=== PATIENT | female | born 1985 | race Two or more races ===

== ENCOUNTER 2019-03-03 11:19 | Inpatient (IN) | payer OTHER ==
[2019-03-03 11:38] VITALS: BMI 22.6
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
[2019-03-03] MEDS ORDERED: MENTHOL/PHENOL 1 EACH UD MM PRN (13:32)
[2019-03-03] MEDS ORDERED: hydrOXYzine PAMOATE 25 MG CAPSULE (FP) PO PRN (13:32)
[2019-03-03] MEDS ORDERED: ONDANSETRON *ODT* 4 MG TABLET SL PRN (13:32)
[2019-03-03] MEDS ORDERED: BISMUTH SUBSALICYLATE 262 MG/15 ML BTL PO PRN (13:32)
[2019-03-03] MEDS ORDERED: ACETAMINOPHEN 325 MG TABLET (FP) PO PRN ×2 (13:32)
[2019-03-03] MEDS ORDERED: LORazepam 1 MG TABLET PO PRN (13:32)
[2019-03-03] MEDS ORDERED: MAG HYDROX/AL HYDROX/SIMETH 30 ML UNIT-DOSE CUP PO PRN (13:32)
[2019-03-03] MEDS ORDERED: MELATONIN 5 MG TABLETS PO PRN (13:32)
[2019-03-03] MEDS ORDERED: MAGNESIUM CITRATE 300 ML BOTTLE PO PRN (13:32)
[2019-03-03] MEDS ORDERED: METHOCARBAMOL 500 MG TABLET PO PRN (13:32)
[2019-03-03] MEDS ORDERED: MAGNESIUM HYDROX 2400MG/30ML ORAL SUSPENSION 30 ML CUP PO PRN (13:32)
[2019-03-03] MEDS ORDERED: ALBUTEROL SO4 HFA INHALER IH PRN (13:34)
[2019-03-03] MEDS: LORazepam 2 MG TABLET PO SCH ×2 (16:11→22:32)
[2019-03-03] MEDS: IBUPROFEN 400 MG TABLET (FP) PO PRN ×2 (16:11→22:34)
[2019-03-03] MEDS: BENZOCAINE 20 % GEL TUBE MM PRN (16:11)
[2019-03-03] MEDS: NICOTINE POLACRILEX 2 MG GUM BUC PRN (16:12)
[2019-03-03 17:54] LABS: HEMATOCRIT 39.5 % (32.4-45.2); HEMOGLOBIN 13.1 GM/dL (10.7-15.3); MCH 29.2 pg (25.7-33.7); MCHC 33.2 g/dl (32.0-36.0); MEAN CELL VOLUME 87.8 fl (80-96); MEAN PLT VOLUME 8.2 fl (7.5-11.1); PLATELET COUNT 362 K/MM3 (134-434); RDW 13.9 % (11.6-15.6); WHITE BLOOD COUNT 6.5 K/mm3 (4.0-10.0)
[2019-03-03 18:05] LABS: ALBUMIN 3.8 g/dl (3.4-5.0); BILIRUBIN,TOTAL 0.2 mg/dL (0.2-1); BLOOD UREA NITROGEN 16.9 mg/dL (7-18); CALCIUM 9.4 mg/dL (8.5-10.1); CREATININE 0.6 mg/dL (0.55-1.3); POTASSIUM 4.1 mmol/L (3.5-5.1); TOT PROT 8.2 g/dl (6.4-8.2)
[2019-03-03] MEDS ORDERED: THIAMINE HCL 100 MG TABLET (FP) PO SCH (22:00)
[2019-03-03] MEDS ORDERED: LIDOCAINE PATCH REMOVAL MC SCH (22:00)
[2019-03-04] MEDS: BENZOCAINE 20 % GEL TUBE MM PRN (05:49)
[2019-03-04] MEDS: LORazepam 2 MG TABLET PO SCH ×2 (05:49→10:22)
[2019-03-04] MEDS: IBUPROFEN 400 MG TABLET (FP) PO PRN (05:50)
[2019-03-04] MEDS: NICOTINE POLACRILEX 2 MG GUM BUC PRN (05:52)
[2019-03-04] MEDS ORDERED: NICOTINE 14 MG/24 HOURS TOPICAL PATCH TD SCH (10:00)
[2019-03-04] MEDS ORDERED: PANTOPRAZOLE 20 MG TABLET PO SCH (10:00)
[2019-03-04] MEDS ORDERED: PRENATAL VITAMINS W/ FOLIC ACID TABLET (FP) PO SCH (10:00)
[2019-03-04] MEDS ORDERED: LIDOCAINE 5% TOPICAL PATCH TP SCH (10:00)
[2019-03-04] MEDS ORDERED: FLU VACCINE QUAD 60 MCG/0.5 ML (MDV 19-20) IM ONE (12:00)
--- NOTE | 2019-03-04 12:27 | PN ---
S CIWA - CIWA Score Nausea/Vomitin-No Nausea/No Vomiting Muscle Tremors: None Anxiety: 3 Agitation: 0-Normal Activity Paroxysmal Sweats: 3 Orientation: 0-Oriented Tacttile Disturbances: 0-None Auditory Disturbances: 0-None Visual Disturbances: 0-None Headache: 2-Mild CIWA-Ar Total Score: 8 S Progress Note (SOAP) Subjective: c/o sweats, headache, anxiety, and interrupted sleep. Objective: 03/04/19 12:27 Vital Signs 03/04/19 03/04/19 06:43 09:27 Temperature 97.4 F L 97.9 F Pulse Rate 78 95 H Respiratory 20 16 Rate Blood Pressure 125/51 L 119/67 Laboratory Last Values WBC 6.5 K/mm3 (4.0-10.0) 03/03/19 13:45 RBC 4.50 M/mm3 (3.60-5.2) 03/03/19 13:45 Hgb 13.1 GM/dL (10.7-15.3) 03/03/19 13:45 Hct 39.5 % (32.4-45.2) 03/03/19 13:45 MCV 87.8 fl (80-96) 03/03/19 13:45 MCH 29.2 pg (25.7-33.7) 03/03/19 13:45 MCHC 33.2 g/dl (32.0-36.0) 03/03/19 13:45 RDW 13.9 % (11.6-15.6) 03/03/19 13:45 Plt Count 362 K/MM3 (134-434) 03/03/19 13:45 MPV 8.2 fl (7.5-11.1) 03/03/19 13:45 Sodium 138 mmol/L (136-145) 03/03/19 13:45 Potassium 4.1 mmol/L (3.5-5.1) 03/03/19 13:45 Chloride 106 mmol/L (98-107) 03/03/19 13:45 Carbon Dioxide 27 mmol/L (21-32) 03/03/19 13:45 Anion Gap 6 MMOL/L (8-16) L 03/03/19 13:45 BUN 16.9 mg/dL (7-18) 03/03/19 13:45 Creatinine 0.6 mg/dL (0.55-1.3) 03/03/19 13:45 Est GFR (CKD-EPI)AfAm 139.78 03/03/19 13:45 Est GFR (CKD-EPI)NonAf 120.61 03/03/19 13:45 Random Glucose 95 mg/dL (74-106) 03/03/19 13:45 Calcium 9.4 mg/dL (8.5-10.1) 03/03/19 13:45 Total Bilirubin 0.2 mg/dL (0.2-1) 03/03/19 13:45 AST 69 U/L (15-37) H 03/03/19 13:45 ALT 179 U/L (13-61) H 03/03/19 13:45 Alkaline Phosphatase 151 U/L (45-117) H 03/03/19 13:45 Total Protein 8.2 g/dl (6.4-8.2) 03/03/19 13:45 Albumin 3.8 g/dl (3.4-5.0) 03/03/19 13:45 Labs noted. Assessment: 03/04/19 12:27 AOX3, in no respiratory distress. Full ROM, ambulating in the unit. Withdrawal symptoms. Plan: continue detox.
[2019-03-04 13:42] VITALS: BP 116/73; PULSE 109; TEMP 97.7
--- NOTE | 2019-03-04 14:36 | EKG ---
Test Reason : Blood Pressure : / mmHG Vent. Rate : 072 BPM Atrial Rate : 072 BPM P-R Int : 146 ms QRS Dur : 084 ms QT Int : 396 ms P-R-T Axes : 016 037 039 degrees QTc Int : 433 ms NORMAL SINUS RHYTHM NORMAL ECG NO PREVIOUS ECGS AVAILABLE Confirmed by IVETH HOOD MD ([id number]) on 03/04/2019 2:36:09 PM Referred By: Confirmed By:IVETH HOOD MD
--- NOTE | 2019-03-04 14:52 | CONSULT ---
[facility] Psychiatric Consult - Data Date of interview: 03/04/19 Admission source: [facility] Identifying data: Patient is approached for psychiatric interview. Ms Patterson declines. " I am not interested. I don't need to see psychiatrists." Nursing staff made aware.
--- NOTE | 2019-03-04 15:05 | DS ---
[facility] Detox Discharge Summary Admission Date: 03/03/19 Discharge Date: 03/04/19 (Left AMA) - History Present History: Alcohol Dependence, Opioid Dependence, Sedative Dependence Additional Comments: Pt left AMA. Pt did not completed the detox protocol. Pt states, "i just want to leave" An attempt to let her stay and complete the detox protocol failed. Pt is encouraged to follow-up with an outpatient CD program and also to follow-up with her pmd. Pt was adamant about the information given. Pt is alert and oriented x3 and in no acute respiratory distress. Pertinent Past History: h/o alcohol, heroin, and benzo use disorder. - Physical Exam Results Vital Signs: Vital Signs Temperature 97.7 F 03/04/19 13:42 Pulse Rate 109 H 03/04/19 13:42 Respiratory Rate 18 03/04/19 13:42 Blood Pressure 116/73 03/04/19 13:42 O2 Sat by Pulse Oximetry (%) Vital Signs 03/04/19 03/04/19 09:27 13:42 Temperature 97.9 F 97.7 F Pulse Rate 95 H 109 H Respiratory 16 18 Rate Blood Pressure 119/67 116/73 Laboratory Last Values WBC 6.5 K/mm3 (4.0-10.0) 03/03/19 13:45 RBC 4.50 M/mm3 (3.60-5.2) 03/03/19 13:45 Hgb 13.1 GM/dL (10.7-15.3) 03/03/19 13:45 Hct 39.5 % (32.4-45.2) 03/03/19 13:45 MCV 87.8 fl (80-96) 03/03/19 13:45 MCH 29.2 pg (25.7-33.7) 03/03/19 13:45 MCHC 33.2 g/dl (32.0-36.0) 03/03/19 13:45 RDW 13.9 % (11.6-15.6) 03/03/19 13:45 Plt Count 362 K/MM3 (134-434) 03/03/19 13:45 MPV 8.2 fl (7.5-11.1) 03/03/19 13:45 Sodium 138 mmol/L (136-145) 03/03/19 13:45 Potassium 4.1 mmol/L (3.5-5.1) 03/03/19 13:45 Chloride 106 mmol/L (98-107) 03/03/19 13:45 Carbon Dioxide 27 mmol/L (21-32) 03/03/19 13:45 Anion Gap 6 MMOL/L (8-16) L 03/03/19 13:45 BUN 16.9 mg/dL (7-18) 03/03/19 13:45 Creatinine 0.6 mg/dL (0.55-1.3) 03/03/19 13:45 Est GFR (CKD-EPI)AfAm 139.78 03/03/19 13:45 Est GFR (CKD-EPI)NonAf 120.61 03/03/19 13:45 Random Glucose 95 mg/dL (74-106) 03/03/19 13:45 Calcium 9.4 mg/dL (8.5-10.1) 03/03/19 13:45 Total Bilirubin 0.2 mg/dL (0.2-1) 03/03/19 13:45 AST 69 U/L (15-37) H 03/03/19 13:45 ALT 179 U/L (13-61) H 03/03/19 13:45 Alkaline Phosphatase 151 U/L (45-117) H 03/03/19 13:45 Total Protein 8.2 g/dl (6.4-8.2) 03/03/19 13:45 Albumin 3.8 g/dl (3.4-5.0) 03/03/19 13:45 HIV 1&2 Antibody Screen Negative 03/03/19 14:30 HIV P24 Antigen Negative 03/03/19 14:30 Labs noted. Pertinent Admission Physical Exam Findings: withdrawal symptoms. - Treatment Hospital Course: Detox Protocol Followed - Medication Discharge Medications: Ambulatory Orders Albuterol Sulfate Inhaler - [Ventolin Hfa Inhaler -] 1 - 2 inh PO QID PRN - Diagnosis (1) Alcohol dependence with withdrawal, uncomplicated Current Visit: Yes Status: Acute (2) Sedative, hypnotic or anxiolytic dependence with withdrawal, uncomplicated Current Visit: Yes Status: Acute (3) Chronic hepatitis C virus infection Current Visit: Yes Status: Chronic Qualifiers: Hepatic coma status: without hepatic coma Qualified Code(s): B18.2 - Chronic viral hepatitis C (4) GERD without esophagitis Current Visit: Yes Status: Chronic (5) Mild asthma without complication Current Visit: Yes Status: Chronic - AMA Did Patient Leave Against Medical Advice: Yes
[2019-03-05] MEDS ORDERED: LORazepam 1 MG TABLET PO SCH (05:00)
[2019-03-06] MEDS ORDERED: LORazepam 0.5 MG TABLET PO PRN
[2019-03-06] MEDS ORDERED: LORazepam 0.5 MG TABLET PO SCH (05:00)
[2019-03-06 11:36] LABS: TREPONEMA ANTIBODY REACTIVE (NONREACTIVE)
--- NOTE | 2019-03-06 15:55 | PN ---
[facility] Progress Note Note: 03/06/19 received rpr report from lab 1:32 and MHA reactive the lab quality measurement specialist states that the infectious disease department will be notified and proper procedure will be followed 33 years old female left the detox facility on 03/04/19 insurance underwriter attempted to contact with the patient without success syphilis will be in the problem list
[2019-03-07] MEDS ORDERED: LORazepam 0.5 MG TABLET PO ONE (05:00)
== END 2019-03-04 16:14 | disposition left against medical advice (07) | DRG 894 ==
LOC: YASAS 11:19 → Y3N 14:14
PROVIDERS: ADMIT Allergy & Immunology; ATTEND Allergy & Immunology
PROC: HZ2ZZZZ Detoxification Services for Substance Abuse Treatment (ICD-10-PCS; principal; 2019-03-03)
DX: F10.230 Alcohol dependence with withdrawal, uncomplicated (principal); F13.230 Sedative, hypnotic or anxiolytic dependence with withdrawal, uncomplicated; F17.210 Nicotine dependence, cigarettes, uncomplicated; F41.9 Anxiety disorder, unspecified; B18.2 Chronic viral hepatitis C; K21.9 Gastro-esophageal reflux disease without esophagitis; J45.909 Unspecified asthma, uncomplicated; M54.5 Low back pain; G89.29 Other chronic pain; Z86.69 Personal history of other diseases of the nervous system and sense organs; Z87.42 Personal history of other diseases of the female genital tract; Z88.8 Allergy status to other drugs, medicaments and biological substances; Z91.018 Allergy to other foods
CPT/HCPCS: 36415; 80053; 81025; 85027; 86593; 86780; 87389; 93005; 93010; Q0162

== ENCOUNTER 2019-03-09 11:56 | Inpatient (IN) | payer OTHER ==
[2019-03-09 13:25] VITALS: BMI 22.6
--- NOTE | 2019-03-09 14:58 | HP ---
CIWA Score Nausea/Vomitin Muscle Tremors: 3 Anxiety: 3 Agitation: 3 Paroxysmal Sweats: 1-Minimal Palms Moist Orientation: 0-Oriented Tacttile Disturbances: 1-Very Mild Itch/Numbness Auditory Disturbances: 0-None Visual Disturbances: 0-None Headache: 2-Mild CIWA-Ar Total Score: 15 - Admission Criteria OASAS Guidelines: Admission for Medically Managed Detox: Requires at least one of the followin. CIWA greater than 12 2. Seizures within the past 24 hours 3. Delirium tremens within the past 24 hours 4. Hallucinations within the past 24 hours 5. Acute intervention needed for co occurring medical disorder 6. Acute intervention needed for co occurring psychiatric disorder 7. Severe withdrawal that cannot be handled at a lower level of care (continued vomiting, continued diarrhea, abnormal vital signs) requiring intravenous medication and/or fluids 8. Admitting History and Physical - Admission Chief Complaint: i need help to stop using xanax ,klonopin and alcohol History of Present Illness: this 33 years old female with xanax and klonopin ,alcohol dependence need help to stop History Source: Patient Limitations to Obtaining History: No Limitations - Past Medical History [employer]: Yes: Seizure, Syncope Pulmonary: Yes: Asthma Hepatobiliary: Yes: Hepatitis C ...LMP: 02/11/19 ...: No ...: 1 ...Para: 1 Psych: Yes: Anxiety, Other (ptsd) - Past Surgical History Past Surgical History: Yes: Additional Past Surgical History: 2w years ago incision and drainage of abscess in 07/31 - Smoking History Smoking history: Current every day smoker Have you smoked in the past 12 months: Yes Aproximately how many cigarettes per day: 20 - Alcohol/Substance Use Hx Alcohol Use: Yes History of Substance Use: reports: Heroin, Tranquilizers - Social History Usual Living Arrangement: Yes: Other (homeless living in the retirement) ADL: Support Services Occupation: unemployed,on disability History of Recent Travel: No Admission ROS [facility] - HPI Chief Complaint: i need help to stop drinking alcohol,heroin abused,klonopin and xanax abused, last detox [facility] 03/03/19 to 03/04/19 not completed,left [facility] nicotine dependence weight loss history of hyperthyrodism,no med had 2 years old girl,under the care of the girl's father ptsd,anxiety,depression longest sobriety 1 year plan for rehab after detox asthma history of section Allergies/Adverse Reactions: Allergies Allergy/AdvReac Type Severity Reaction Status Date / Time metoclopramide [From Reglan] Allergy Severe Swelling Verified 03/09/19 13:16 turkey Allergy Intermediate Itching Verified 03/09/19 13:16 History of Present Illness: please see chief complaint Exam Limitations: No Limitations - Ebola screening Have you traveled outside of the country in the last 21 days: No Have you had contact with anyone from an Ebola affected area: No Do you have a fever: No - Review of Systems Constitutional: Loss of Appetite, Malaise, Night Sweats, Changes in sleep, Weakness, Unintentional Wgt. Loss EENT: reports: Nose Congestion Respiratory: reports: Wheezing (astma) Cardiac: reports: No Symptoms Reported GI: reports: Diarrhea, Nausea, Vomiting, Abdominal cramping : reports: No Symptoms Reported Musculoskeletal: reports: Back Pain, Muscle Pain Integumentary: reports: Dryness Neuro: reports: Headache, Seizure, Tremors Endocrine: reports: No Symptoms Reported, Other (hypoglycemia hyperthyroidism) Hematology: reports: No Symptoms Reported Psychiatric: reports: No Sypmtoms Reported, Judgement Intact, Mood/Affect Appropiate, Orientated x3, Anxious (ptsd,nsomnia), Depressed, other Other Systems: Reviewed and Negative Patient History - Patient Medical History Hx Anemia: No Hx Asthma: No Hx Chronic Obstructive Pulmonary Disease (COPD): No Hx Cancer: No Hx Cardiac Disorders: No Hx Congestive Heart Failure: No Hx Hypertension: No Hx Hypercholesterolemia: No Hx Pacemaker: No HX Cerebrovascular Accident: No Hx Seizures: Yes (in 2012) Hx Dementia: No Hx Diabetes: No Hx Gastrointestinal Disorders: No Hx Liver Disease: Yes (Hep C ) Hx Genitourinary Disorders: No Hx Sexually Transmitted Disorders: No Hx Renal Disease (ESRD): No Hx Thyroid Disease: No Hx Human Immunodeficiency Virus (HIV): No Hx Hepatitis C: Yes (untreated ) Hx Depression: Yes Hx Suicide Attempt: No Hx Bipolar Disorder: No Hx Schizophrenia: No Other Medical History: anxiety,no sucidal,no homicidal - Patient Surgical History Past Surgical History: Yes Hx Section: Yes (x1 in 2017) Hx Orthopedic Surgery: No Hx Hysterectomy: No Anesthesia Reaction: No - PPD History Previous Implant?: Yes Documented Results: Negative w/o proof Implanted On Prior [facility] Admission?: Yes Date: 03/05/19 Results: no reading PPD to be Administered?: Yes - Reproductive History Patient is a Female of Child Bearing Age (11 -55 yrs old): Yes Last Menstrual Period: 02/11/19 Patient : No - Smoking Cessation Smoking history: Current every day smoker Have you smoked in the past 12 months: Yes Aproximately how many cigarettes per day: 20 Hx Chewing Tobacco Use: No Initiated information on smoking cessation: Yes 'Breaking Loose' booklet given: 03/09/19 - Substance & Tx. History Hx Alcohol Use: Yes Hx Substance Use: Yes Substance Use Type: Alcohol, Cocaine, Heroin, Tranquilizers Hx Substance Use Treatment: Yes ([facility] `9 to 03/04/19) - Substances abused Heroin Substance route: Inhalation Frequency: Daily Amount used: 3-5bags Age of first use: 29 Date of last use: 03/02/19 Alcohol Substance route: Oral Frequency: Daily Amount used: 1 pint of whiskey/2-4 beers cans - 24oz Age of first use: 21 Date of last use: 03/09/19 Alprazolam (Xanax) Substance route: Oral Frequency: Daily Amount used: 3 mg Age of first use: 21 Date of last use: 03/02/19 Benzodiazepine (Klonopin) Substance route: Oral Amount used: 2-5 pills Age of first use: 21 Date of last use: 03/06/19 Admission Physical Exam [facility] - Vital Signs Vital Signs: Vital Signs - 24 hr 03/09/19 13:16 Temperature 97.6 F Pulse Rate 97 H Respiratory 20 Rate Blood Pressure 128/73 - Physical General Appearance: Yes: Moderate Distress, Tremorous, Irritable, Sweating, Anxious HEENTM: Yes: Normal ENT Inspection, KYMBERLY, Pharynx Normal Respiratory: Yes: Within Normal Limits, Lungs Clear, Normal Breath Sounds Neck: Yes: Within Normal Limits, Supple, Trachea in good position Breast: Yes: Breast Exam Deferred Cardiology: Yes: Within Normal Limits, Regular Rhythm, Regular Rate, S1, S2 Abdominal: Yes: Within Normal Limits, Normal Bowel Sounds, Non Tender, Flat, Soft Genitourinary: Yes: Within Normal Limits Back: Yes: Muscle Spasm Musculoskeletal: Yes: Back pain, Muscle Pain Extremities: Yes: Within Normal Limits, Tremors Neurological: Yes: supervisor furnace room II-XII NML intact, Fully Oriented, Alert, Motor Strength 5/5 Integumentary: Yes: Dry Lymphatic: Yes: Within Normal Limits - Diagnostic (1) Alcohol dependence with withdrawal, uncomplicated Current Visit: No Status: Acute (2) Sedative, hypnotic or anxiolytic dependence with withdrawal, uncomplicated Current Visit: No Status: Acute (3) Chronic hepatitis C virus infection Current Visit: No Status: Chronic Qualifiers: Hepatic coma status: without hepatic coma Qualified Code(s): B18.2 - Chronic viral hepatitis C (4) GERD without esophagitis Current Visit: No Status: Chronic (5) Asthma Current Visit: Yes Status: Acute (6) Scoliosis Current Visit: Yes Status: Acute (7) History of syphilis Current Visit: Yes Status: Acute (8) Weight loss Current Visit: Yes Status: Acute Cleared for Admission S - Detox or Rehab [facility] Level of Care: Medically Managed Detox Regimen/Protocol: Ativan Breathalyzer - Breathalyzer Breathalyzer: 0 Urine Drug Screen - Test Device Lot number: [id number] Expiration date: 10/12/20 - Control Is test valid?: Yes - Results Drug screen NEGATIVE: No Urine drug screen results: HARLEEN-Cocaine, BZO-Benzodiazepines Inpatient Rehab Admission - Rehab Decision to Admit Inpatient rehab admission?: No
[2019-03-09] MEDS ORDERED: LORazepam 1 MG TABLET PO PRN (15:19)
[2019-03-09] MEDS ORDERED: MENTHOL/PHENOL 1 EACH UD MM PRN (15:20)
[2019-03-09] MEDS ORDERED: MELATONIN 5 MG TABLETS PO PRN (15:20)
[2019-03-09] MEDS ORDERED: MAGNESIUM HYDROX 2400MG/30ML ORAL SUSPENSION 30 ML CUP PO PRN (15:20)
[2019-03-09] MEDS ORDERED: BISMUTH SUBSALICYLATE 524 MG/30 ML UD PO PRN (15:20)
[2019-03-09] MEDS ORDERED: ACETAMINOPHEN 325 MG TABLET (FP) PO PRN ×2 (15:20)
[2019-03-09] MEDS ORDERED: MAGNESIUM CITRATE 300 ML BOTTLE PO PRN (15:20)
[2019-03-09] MEDS ORDERED: AZITHROMYCIN 250 MG TABLET PO ONE (16:30)
[2019-03-09] MEDS: LORazepam 2 MG TABLET PO SCH ×2 (17:28→22:41)
[2019-03-09] MEDS: NICOTINE 21 MG/24 HOURS TOPICAL PATCH TD SCH (17:28)
[2019-03-09] MEDS: guaiFENesin 200 MG/10 ML 10 ML UNIT-DOSE CUPS PO PRN (17:29)
[2019-03-09] MEDS: IBUPROFEN 400 MG TABLET (FP) PO PRN (17:29)
[2019-03-09 17:50] LABS: ALBUMIN 3.6 g/dl (3.4-5.0); BILIRUBIN,TOTAL 0.3 mg/dL (0.2-1); BLOOD UREA NITROGEN 12.2 mg/dL (7-18); CALCIUM 9.2 mg/dL (8.5-10.1); CREATININE 0.6 mg/dL (0.55-1.3); POTASSIUM 3.7 mmol/L (3.5-5.1); TOT PROT 7.8 g/dl (6.4-8.2)
[2019-03-09] MEDS: THIAMINE HCL 100 MG TABLET (FP) PO SCH (22:41)
[2019-03-09] MEDS: NICOTINE POLACRILEX 2 MG GUM BUC PRN (22:44)
[2019-03-10] MEDS: LORazepam 2 MG TABLET PO SCH ×4 (05:40→22:16)
[2019-03-10] MEDS: IBUPROFEN 400 MG TABLET (FP) PO PRN ×2 (05:50→16:37)
[2019-03-10] MEDS ORDERED: ONDANSETRON *ODT* 4 MG TABLET SL PRN (10:04)
[2019-03-10] MEDS ORDERED: ALBUTEROL SO4 8 GM HFA INHALER IH PRN (10:05)
[2019-03-10] MEDS ORDERED: SIMETHICONE 80 MG TAB.CHEW (FP) PO PRN (10:06)
[2019-03-10] MEDS: AZITHROMYCIN 250 MG TABLET PO SCH (10:25)
[2019-03-10] MEDS: PRENATAL VITAMINS W/ FOLIC ACID TABLET (FP) PO SCH (10:25)
[2019-03-10] MEDS: NICOTINE 21 MG/24 HOURS TOPICAL PATCH TD SCH (10:25)
[2019-03-10] MEDS ORDERED: AMMONIUM LACTATE 12% LOTION 225 GM BOTTLE TP PRN (10:31)
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
--- NOTE | 2019-03-10 13:43 | PN ---
S CIWA - CIWA Score Nausea/Vomitin-No Nausea/No Vomiting Muscle Tremors: 3 Anxiety: 3 Agitation: 3 Paroxysmal Sweats: 3 Orientation: 0-Oriented Tacttile Disturbances: 0-None Auditory Disturbances: 0-None Visual Disturbances: 0-None Headache: 0-None Present CIWA-Ar Total Score: 12 BHS Progress Note (SOAP) Subjective: diarrhea sweats shakes body aches tooth ache Objective: 03/10/19 13:49 Vital Signs Temperature 98.2 F 03/10/19 09:31 Pulse Rate 98 H 03/10/19 09:31 Respiratory Rate 18 03/10/19 09:31 Blood Pressure 129/61 03/10/19 09:31 O2 Sat by Pulse Oximetry (%) Laboratory Tests 03/09/19 03/09/19 15:45 15:45 Sodium 138 Potassium 3.7 Chloride 106 Carbon Dioxide 26 Anion Gap 6 L BUN 12.2 Creatinine 0.6 Est GFR (CKD-EPI)AfAm 139.78 Est GFR (CKD-EPI)NonAf 120.61 Random Glucose 137 H Calcium 9.2 Total Bilirubin 0.3 AST 26 ALT 76 H Alkaline Phosphatase 123 H Total Protein 7.8 Albumin 3.6 TSH 0.59 Thyroxine (T4) 9.2 Resin T3 Uptake 34.4 labs noted aaox3 ambulating no acute distress Assessment: 03/10/19 13:49 withdrawals Plan: continue detox anbesol prn pepto prn
[2019-03-10 14:12] LABS: TREPONEMA ANTIBODY PREVIOUSLY REACTIVE (NONREACTIVE)
[2019-03-10] MEDS: hydrOXYzine PAMOATE 25 MG CAPSULE (FP) PO PRN (14:42)
[2019-03-10] MEDS: BENZOCAINE 20 % GEL TUBE MM PRN ×2 (14:53→21:47)
[2019-03-10] MEDS: guaiFENesin 200 MG/10 ML 10 ML UNIT-DOSE CUPS PO PRN (18:47)
[2019-03-10] MEDS: NICOTINE POLACRILEX 2 MG GUM BUC PRN (18:48)
[2019-03-10] MEDS: METHOCARBAMOL 500 MG TABLET PO PRN (19:33)
[2019-03-10] MEDS: ALBUTEROL SO4 2.5/IPRATROPIUM 0.5 INH SOL 3 ML VIAL.NEB. NEB PRN (21:52)
[2019-03-10] MEDS: THIAMINE HCL 100 MG TABLET (FP) PO SCH (22:16)
[2019-03-10] MEDS: SUVOREXANT 10 MG TABLET PO PRN (22:17)
[2019-03-10] MEDS: MAG HYDROX/AL HYDROX/SIMETH 30 ML UNIT-DOSE CUP PO PRN (22:18)
[2019-03-11] MEDS: LORazepam 1 MG TABLET PO SCH ×4 (05:24→22:21)
[2019-03-11] MEDS: METHOCARBAMOL 500 MG TABLET PO PRN ×2 (07:07→19:51)
[2019-03-11] MEDS: IBUPROFEN 400 MG TABLET (FP) PO PRN (07:07)
[2019-03-11] MEDS: hydrOXYzine PAMOATE 25 MG CAPSULE (FP) PO PRN (07:07)
[2019-03-11] MEDS: PRENATAL VITAMINS W/ FOLIC ACID TABLET (FP) PO SCH (09:49)
[2019-03-11] MEDS: NICOTINE 21 MG/24 HOURS TOPICAL PATCH TD SCH (09:49)
[2019-03-11] MEDS: AZITHROMYCIN 250 MG TABLET PO SCH (09:50)
[2019-03-11] MEDS: ALBUTEROL SO4 2.5/IPRATROPIUM 0.5 INH SOL 3 ML VIAL.NEB. NEB PRN (11:03)
[2019-03-11] MEDS: LIDOCAINE 5% TOPICAL PATCH TP SCH (11:58)
[2019-03-11] MEDS ORDERED: PENICILLIN G BENZATHINE 2,400,000 UNIT/4 ML PFS IM ONE ×2 (14:55→19:00)
--- NOTE | 2019-03-11 17:22 | PN ---
[facility] CIWA - CIWA Score Nausea/Vomitin (and Diarrhea.) Muscle Tremors: None Anxiety: 4-Mod. Anxious/Guarded Agitation: 4-Moderately Restless Paroxysmal Sweats: No Perspiration Orientation: 2-Disoriented Date<2 days Tacttile Disturbances: 2-Mild Itch/Numbness/Burn Auditory Disturbances: 0-None Visual Disturbances: 0-None Headache: 0-None Present CIWA-Ar Total Score: 15 S Progress Note (SOAP) Subjective: Anxious, Restless, Diarrhea, Nausea. Objective: PATIENT A & O X 2 (UNCERTAIN ABOUT CURRENT DAY/ DATE). PATIENT OBSERVED AMBULATING ON DETOX UNIT UNASSISTED. IN NO ACUTE DISTRESS. 03/11/19 17:20 Vital Signs Temperature 97.5 F L 03/11/19 13:34 Pulse Rate 114 H 03/11/19 13:34 Respiratory Rate 18 03/11/19 13:34 Blood Pressure 141/79 03/11/19 13:34 O2 Sat by Pulse Oximetry (%) 99 03/11/19 11:33 Laboratory Tests 03/09/19 03/09/19 03/09/19 15:45 15:45 15:45 Sodium 138 Potassium 3.7 Chloride 106 Carbon Dioxide 26 Anion Gap 6 L BUN 12.2 Creatinine 0.6 Est GFR (CKD-EPI)AfAm 139.78 Est GFR (CKD-EPI)NonAf 120.61 Random Glucose 137 H Calcium 9.2 Total Bilirubin 0.3 AST 26 ALT 76 H Alkaline Phosphatase 123 H Total Protein 7.8 Albumin 3.6 TSH 0.59 Thyroxine (T4) 9.2 Resin T3 Uptake 34.4 RPR Titer Reactive 1:32 H T.pallidum Ab (MHA) Previously reactive LABS NOTED. 03/11/19 17:21 Assessment: 03/11/19 17:21 WITHDRAWAL SYMPTOMS. REACTIVE RPR. 03/11/19 17:21 Plan: CONTINUE DETOX. PATIENT REPORTS THAT SHE HAD ONE INSTALLMENT DOSE OF BICILLIN INJECTION AT OTHER HOSPITAL APPROX. 2 WEEKS AGO. PATIENT DENIES ANY SUBSEQUENT DOSES OF MEDICATION. ONE DOSE OF BICILLIN L-A IM ORDERED. PATIENT ADVISED TO FOLLOW-UP WITH WELDING MACHINE OPERATOR [facility] AFTER DISCHARGE FROM DETOX FOR SUBSEQUENT INSTALLMENTS OF MEDICATION. PATIENT VERBALIZED UNDERSTANDING OF RECOMMENDATION AND NOTES THAT SHE WILL BE ATTENDING [facility] OUTPATIENT PROGRAM ([place], [place]) AFTER DISCHARGE FROM DETOX AND THAT SHE WILL BE REFERRED TO PRIMARY CARE MEDICAL PROVIDER BY THAT PROGRAM.
[2019-03-11] MEDS: NICOTINE POLACRILEX 2 MG GUM BUC PRN (18:11)
[2019-03-11] MEDS: MAG HYDROX/AL HYDROX/SIMETH 30 ML UNIT-DOSE CUP PO PRN (18:54)
[2019-03-11] MEDS ORDERED: LIDOCAINE PATCH REMOVAL MC SCH (22:00)
[2019-03-11] MEDS: THIAMINE HCL 100 MG TABLET (FP) PO SCH (22:21)
[2019-03-11] MEDS: SUVOREXANT 10 MG TABLET PO PRN (22:23)
[2019-03-11] MEDS: guaiFENesin 200 MG/10 ML 10 ML UNIT-DOSE CUPS PO PRN (22:25)
[2019-03-12] MEDS ORDERED: LORazepam 0.5 MG TABLET PO PRN
[2019-03-12] MEDS: IBUPROFEN 400 MG TABLET (FP) PO PRN (01:08)
[2019-03-12] MEDS: hydrOXYzine PAMOATE 25 MG CAPSULE (FP) PO PRN (01:09)
[2019-03-12] MEDS: BENZOCAINE 20 % GEL TUBE MM PRN (01:10)
[2019-03-12] MEDS: LORazepam 0.5 MG TABLET PO SCH ×2 (06:10→10:31)
[2019-03-12] MEDS: guaiFENesin 200 MG/10 ML 10 ML UNIT-DOSE CUPS PO PRN (06:11)
[2019-03-12] MEDS: MAG HYDROX/AL HYDROX/SIMETH 30 ML UNIT-DOSE CUP PO PRN (06:14)
[2019-03-12] MEDS: NICOTINE POLACRILEX 2 MG GUM BUC PRN (06:15)
[2019-03-12 09:32] VITALS: BP 127/72; PULSE 97; TEMP 98.2
[2019-03-12] MEDS: LIDOCAINE 5% TOPICAL PATCH TP SCH (10:30)
[2019-03-12] MEDS: NICOTINE 21 MG/24 HOURS TOPICAL PATCH TD SCH (10:30)
[2019-03-12] MEDS: PRENATAL VITAMINS W/ FOLIC ACID TABLET (FP) PO SCH (10:31)
[2019-03-12] MEDS: AZITHROMYCIN 250 MG TABLET PO SCH (10:31)
--- NOTE | 2019-03-12 17:13 | DS ---
[facility] Detox Discharge Summary Admission Date: 03/09/19 Discharge Date: 03/12/19 - History Present History: Alcohol Dependence, Opioid Dependence, Sedative Dependence Additional Comments: Patient demanded to leave AMA despite encouragement from staff to complete detox. Patient instructed to call 911 STAT if sick or withdrawal sxs and to see her PCP within 3 days. Pertinent Past History: Seizure disorder Asthma Hepatitis C Hyperthyroidism Syphilis, latent - Physical Exam Results Vital Signs: Vital Signs Temperature 98.2 F 03/12/19 09:31 Pulse Rate 97 H 03/12/19 09:31 Respiratory Rate 18 03/12/19 09:31 Blood Pressure 127/72 03/12/19 09:31 O2 Sat by Pulse Oximetry (%) 99 03/11/19 11:33 Pertinent Admission Physical Exam Findings: Withdrawal sxs Laboratory Tests 03/09/19 03/09/19 03/09/19 15:45 15:45 15:45 Sodium 138 Potassium 3.7 Chloride 106 Carbon Dioxide 26 Anion Gap 6 L BUN 12.2 Creatinine 0.6 Est GFR (CKD-EPI)AfAm 139.78 Est GFR (CKD-EPI)NonAf 120.61 Random Glucose 137 H Calcium 9.2 Total Bilirubin 0.3 AST 26 ALT 76 H Alkaline Phosphatase 123 H Total Protein 7.8 Albumin 3.6 TSH 0.59 Thyroxine (T4) 9.2 Resin T3 Uptake 34.4 RPR Titer Reactive 1:32 H T.pallidum Ab (MHA) Previously reactive Labs reviewed: latent syphilis, received 2nd injection for PCN G benzathine here at [facility] and instructed to follow up with PCP for 3rd injection in one week Serum glucose 137 (high), denies DM, LFTs high; instructed to follow up with PCP re: abnormal lab results for further evaluation. - Medication Discharge Medications: Ambulatory Orders Albuterol Sulfate Inhaler - [Ventolin Hfa Inhaler -] 1 - 2 inh PO QID PRN Fluticasone/Vilanterol [Breo Ellipta 100-25 Mcg INH] 1 each IH DAILY 03/09/19 - Diagnosis (1) Elevated LFTs Status: Acute (2) Hyperglycemia Status: Acute (3) History of hyperthyroidism Status: Chronic (4) Alcohol dependence with withdrawal, uncomplicated Status: Acute (5) Anxious mood Status: Acute (6) Opioid dependence Status: Acute (7) Sedative, hypnotic or anxiolytic dependence with withdrawal, uncomplicated Status: Acute (8) Syphilis Status: Acute (9) Asthma Status: Chronic (10) Chronic hepatitis C virus infection Status: Chronic Qualifiers: Hepatic coma status: without hepatic coma Qualified Code(s): B18.2 - Chronic viral hepatitis C (11) Nicotine dependence Status: Chronic - AMA Did Patient Leave Against Medical Advice: Yes (Instructed to call 911 STAT if sick or withdrawal sxs)
[2019-03-13] MEDS ORDERED: LORazepam 0.5 MG TABLET PO ONE (05:00)
== END 2019-03-12 12:57 | disposition home or self-care (01) | DRG 897 ==
LOC: YASAS 11:56 → Y6N 15:40
PROVIDERS: ADMIT Allergy & Immunology; ATTEND Allergy & Immunology
PROC: HZ2ZZZZ Detoxification Services for Substance Abuse Treatment (ICD-10-PCS; principal; 2019-03-09)
DX: F14.20 Cocaine dependence, uncomplicated (principal); F19.280 Other psychoactive substance dependence with psychoactive substance-induced anxiety disorder; F19.282 Other psychoactive substance dependence with psychoactive substance-induced sleep disorder; F11.23 Opioid dependence with withdrawal; F13.230 Sedative, hypnotic or anxiolytic dependence with withdrawal, uncomplicated; F17.210 Nicotine dependence, cigarettes, uncomplicated; F41.9 Anxiety disorder, unspecified; R94.5 Abnormal results of liver function studies; R63.4 Abnormal weight loss; E05.90 Thyrotoxicosis, unspecified without thyrotoxic crisis or storm; J45.909 Unspecified asthma, uncomplicated; R73.9 Hyperglycemia, unspecified; B18.2 Chronic viral hepatitis C; K21.9 Gastro-esophageal reflux disease without esophagitis; Z87.42 Personal history of other diseases of the female genital tract; Z88.8 Allergy status to other drugs, medicaments and biological substances; Z91.018 Allergy to other foods; Z86.69 Personal history of other diseases of the nervous system and sense organs
CPT/HCPCS: 36415; 80053; 84436; 84443; 84479; 86593; 86780; 94640; Q0162